=== PATIENT | male | born 1965 | race Caucasian/White ===

== ENCOUNTER → 2017-02-16 | Outpatient (CLI) | payer OTHER ==
[~2017-02-16] MED LIST: ROBA750T PO
[2017-02-16 13:20] LABS: AUTOMATED NEUTROPHIL # 3.2 TH/MM3 (1.8-7.7); BASOPHIL % 0.5 % (0.0-2.0); EOSINOPHIL # 0.2 TH/MM3 (0-0.4); EOSINOPHIL % 3.3 % (0.0-4.0); HEMATOCRIT 45.6 % (39.0-51.0); HEMO FLAGS DIFF FINAL; LYMPH % 43.8 % (9.0-44.0); LYMPHOCYTE # 3.2 TH/MM3 (1.0-4.8); MEAN CELL VOLUME 89.8 FL (80.0-100.0); MEAN CORPUSCULAR HGB CONC 33.4 % (32.0-36.0); MONO % 8.5 % (0.0-8.0); NEUT % 43.9 % (16.0-70.0); PLATELET COUNT 214 TH/MM3 (150-450); RED BLOOD COUNT 5.07 MIL/MM3 (4.50-5.90); RED CELL DISTRIBUTION WIDTH 12.9 % (11.6-17.2); WHITE BLOOD COUNT 7.4 TH/MM3 (4.0-11.0)
[2017-02-16 13:33] LABS: BLOOD, URINE NEG (NEG); GLUCOSE,URINE NEG (NEG); KETONE, URINE NEG (NEG); MUCUS URINE FEW /lpf (OCC); NITRITE,URINE NEG (NEG); SQUAMOUS EPITHELIAL CELL URINE <1 /hpf (0-5); URINE COLOR LIGHT-YELLOW (YELLW/STRAW)
[2017-02-16 13:33] LABS: ALKALINE PHOSPHATASE 87 U/L (45-117); ALT (GPT) 62 U/L (12-78); ANION GAP 10 MEQ/L (5-15); AST (GOT) 27 U/L (15-37); BICARBONATE 26.4 MEQ/L (21.0-32.0); BLOOD UREA NITROGEN 13 MG/DL (7-18); CHLORIDE 101 MEQ/L (98-107); GLOMERULAR FILTRATION RATE 85 ML/MIN (>89); GLUCOSE,FASTING 100 MG/DL (74-99); HDL CHOLESTEROL 78.5 MG/DL (40.0-60.0); LDL CHOLESTEROL 120 MG/DL (0-99); LDL CHOLESTEROL DIRECT 118 MG/DL (0-99); SODIUM (NA) 137 MEQ/L (136-145); TOTAL BILIRUBIN ADULT 0.5 MG/DL (0.2-1.0)
== END ==
LOC: PLAB 10:37
PROVIDERS: ATTEND Family Medicine
DX: R03.0 Elevated blood-pressure reading, without diagnosis of hypertension (principal); Z12.5 Encounter for screening for malignant neoplasm of prostate
CPT/HCPCS: 80053; 80061; 81001; 83721; 84153; 85025

== ENCOUNTER 2017-04-26 14:04 | Emergency (ER) | payer OTHER ==
[~2017-04-26] VITALS: Ht 188 cm; Wt 111.0 kg
[2017-04-26 14:10] VITALS: BP 135/89; PULSE 79; RESP 16; TEMP 97.4; O2SAT 99
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
[2017-04-26] MEDS ORDERED: TETANUS/DIPHTHERIA TOXOID ADULT 0.5 ML VIAL IM ONE (14:45)
[2017-04-26] MEDS ORDERED: ROBA750T PO (15:12)
--- NOTE | 2017-04-26 15:51 | RADRPT ---
EXAM DATE/TIME: 04/26/2017 15:05 [facility] COMPARISON: No previous studies available for comparison. INDICATIONS : Neck pain. MEDICAL HISTORY : None. SURGICAL HISTORY : None. ENCOUNTER: Initial ACUITY: 1 day PAIN SCORE: 4/10 LOCATION: Neck FINDINGS: There are degenerative changes at C5-C6 and C6-C7. Oblique views reveal patent neural foramen. AP an d odontoid are unremarkable. CONCLUSION: Degenerative changes otherwise negative. Deandre Degroot MD FACR on April 26, 2017 at 15:44 Board Certified Radiologist. This report was verified electronically.
== END 2017-04-26 16:35 | disposition home or self-care (01) ==
LOC: PHEFT 14:04
DX: S01.01XA Laceration without foreign body of scalp, initial encounter (principal); S16.1XXA Strain of muscle, fascia and tendon at neck level, initial encounter; Z23 Encounter for immunization; W16.522A Jumping or diving into swimming pool striking bottom causing other injury, initial encounter; Y93.89 Activity, other specified; Y92.838 Other recreation area as the place of occurrence of the external cause
CPT/HCPCS: 12002; 72050; 90471; 90714